=== PATIENT | male | born 1965 | race Two or more races ===

== ENCOUNTER 2019-10-02 12:34 | Emergency (ER) | payer BC, OTHER ==
[~2019-10-02] VITALS: Ht 182.9 cm; Wt 91.2 kg
[2019-10-02 12:38] VITALS: BP 145/76
[2019-10-02] MEDS ORDERED: cefTRIAXone SOD 1,000 MG VL IM ONE (13:30)
[2019-10-02] MEDS ORDERED: BENZOCAINE (DENTAL) 20 % SPRAY 60ML MT ONE (13:30)
== END 2019-10-02 14:18 | disposition home or self-care (01) ==
LOC: ER 12:39
DX: K04.7 Periapical abscess without sinus (principal)
CPT/HCPCS: 41800; 96372; 99283; J0696